=== PATIENT | female | born 1990 | race Hispanic/Latino ===

== ENCOUNTER 2021-10-15 03:50 | Emergency (ER) | payer OTHER ==
[~2021-10-15] VITALS: Ht 157.5 cm; Wt 74.8 kg
[2021-10-15 07:35] VITALS: BP 123/71
[2021-10-15] MEDS ORDERED: IBUP-2070 PO (07:39)
[2021-10-15] MEDS ORDERED: ACET-2079 PO (07:39)
[2021-10-15] MEDS ORDERED: IBUPROFEN 600 MG TABLET PO ONE (08:00)
[2021-10-15] MEDS ORDERED: HYDROCODONE/ACETAMINOPHEN 10/325 MG TAB PO ONE (08:00)
== END 2021-10-15 08:30 | disposition home or self-care (01) ==
LOC: EDH 03:50
DX: S93.401A Sprain of unspecified ligament of right ankle, initial encounter (principal); F41.9 Anxiety disorder, unspecified; X50.1XXA Overexertion from prolonged static or awkward postures, initial encounter; Y93.89 Activity, other specified; Y92.89 Other specified places as the place of occurrence of the external cause; Y99.8 Other external cause status
CPT/HCPCS: 73600